=== PATIENT | female | born 1995 | race Two or more races ===

== ENCOUNTER 2024-06-11 02:40 | Inpatient (IN) | payer OTHER ==
[~2024-06-11] VITALS: Ht 160 cm; Wt 80.7 kg
[2024-06-11 01:59] VITALS: BP 115/72
[2024-06-11] MEDS ORDERED: RINGERS SOLUTION,LACTATED 1,000 ML IV SCH (02:45)
[2024-06-11] MEDS ORDERED: MAGNESIUM SULFATE IN WATER 4 GM/100 ML PIGGYBACK IV SCH (02:45)
[2024-06-11] MEDS ORDERED: BETAMETHASONE ACETATE,SOD PHOS 30 MG/5 ML ML IM SCH (02:45)
[2024-06-11] MEDS ORDERED: MAGNESIUM SULFATE IN WATER 500 ML IV SCH (02:45)
[2024-06-11] MEDS ORDERED: PRENATA CHEWAB1 EACH PO (03:37)
[2024-06-11] MEDS ORDERED: IRON236 MG PO (03:38)
[2024-06-11 03:52] LABS: HEMATOCRIT 32.6 % (36.0-45.00); HEMOGLOBIN 11.2 g/dL (12.0-15.00); MEAN CELL VOLUME 85.1 fL (80.00-100.00); MEAN CORPUSCULAR HEMOGLOBIN 29.1 pg (27.00-32.0); MEAN CORPUSCULAR HGB CONC 34.2 g/dl (32.0-36.0); PLATELET COUNT 370 K/uL (150-450); RED BLOOD COUNT 3.83 M/uL (4.00-6.00); RED CELL DISTRIBUTION WIDTH 13.4 % (11.5-14.5); URINE APPEARANCE Clear; URINE BILIRRUBIN Negative (NEGATIVE); URINE BLOOD Negative; URINE COLOR Yellow; URINE GLUCOSE Negative (NEGATIVE); URINE KETONE Negative (NEGATIVE); URINE LEUKOCYTE Negative; URINE NITRATE Negative; URINE PROTEIN Negative (NEGATIVE); URINE UROBILINOGEN 0.2 E.U./dl
[2024-06-11 04:01] LABS: URINE BACTERIA 276.5 uL (0.0-1933); URINE EPITHELIAL CELLS 19.1 uL (0.0-38.8); URINE WBC 6.6 uL (0.0-23.2)
[2024-06-11 04:23] LABS: INR < 0.93; PARTIAL THROMBOPLASTIN TIME 26.5 SECONDS (22.0-34.0)
[2024-06-11 04:25] LABS: ALBUMIN 2.9 gm/dL (3.4-5.0); BILIRUBIN TOTAL 0.19 mg/dL (0.3-1.2); CALCIUM 9.3 mg/dL (8.5-10.1); CREATININE SERUM 0.69 mg/dL (0.55-1.02); GFR 102.06; GLOBULINA 3.6 G/DL (2.4-3.5); POTASSIUM 4.57 mEq/L (3.5-5.1); TOTAL PROTEIN 6.5 gm/dL (6.4-8.2)
[2024-06-11 07:21] VITALS: BP 98/60
[2024-06-11 11:07] VITALS: BP 91/60
[2024-06-11 15:21] VITALS: BP 99/61
[2024-06-11 19:39] VITALS: BP 102/53
[2024-06-11 23:50] VITALS: BP 105/63
[2024-06-12] MEDS ORDERED: ACETAMINOPHEN 500 MG GEL..CAP PO ONE ×2 (03:08→04:00)
[2024-06-12 03:22] VITALS: BP 114/70
[2024-06-12] MEDS ORDERED: BETAMETHASONE ACETATE,SOD PHOS 30 MG/5 ML ML IM NR (03:35)
[2024-06-12 05:56] VITALS: BP 93/54; O2SAT 97
[2024-06-12] MEDS ORDERED: NIFEDIPINE 60 MG TAB.SA.OSM PO SCH (09:00)
[2024-06-12 11:00] VITALS: BP 111/68
[2024-06-12 16:01] VITALS: BP 106/64
[2024-06-13 00:51] VITALS: BP 100/60
[2024-06-13 05:50] VITALS: BP 100/55
[2024-06-13 08:47] VITALS: BP 114/67
== END 2024-06-13 08:50 | disposition home or self-care (01) | DRG 833 ==
LOC: OB/GYN 02:40 → LDR 02:40 → OB/GYN 06-12 08:55
PROVIDERS: Obstetrics & Gynecology; ADMIT Obstetrics & Gynecology Gynecology; ATTEND Obstetrics & Gynecology Gynecology
PROC: 4A1HXCZ Monitoring of Products of Conception, Cardiac Rate, External Approach (ICD-10-PCS; principal; 2024-06-11)
DX: O60.03 Preterm labor without delivery, third trimester (principal); Z3A.33 33 weeks gestation of pregnancy; Z20.822 Contact with and (suspected) exposure to COVID-19

== ENCOUNTER 2024-06-17 11:45 | Outpatient (CLI) | payer OTHER ==
[~2024-06-17 11:45] MED LIST: IRON236 MG PO; PRENATA CHEWAB1 EACH PO
== END 2024-06-17 12:47 | disposition home or self-care (01) ==
LOC: NST 11:45
PROVIDERS: ATTEND Obstetrics & Gynecology
DX: Z34.83 Encounter for supervision of other normal pregnancy, third trimester (principal)

== ENCOUNTER 2024-07-02 12:17 | Outpatient (CLI) | payer OTHER | END 2024-07-02 12:59 | disposition home or self-care (01) | LOC: NST 12:17 | PROVIDERS: ATTEND Obstetrics & Gynecology Maternal & Fetal Medicine | DX: Z3A.36 36 weeks gestation of pregnancy (principal) ==

== ENCOUNTER 2024-07-04 10:22 | Outpatient (CLI) | payer OTHER | END 2024-07-04 11:24 | disposition home or self-care (01) | LOC: NST 10:22 | PROVIDERS: ATTEND Obstetrics & Gynecology Maternal & Fetal Medicine | DX: Z34.83 Encounter for supervision of other normal pregnancy, third trimester (principal) ==

== ENCOUNTER 2024-07-08 10:12 | Outpatient (CLI) | payer OTHER | END 2024-07-08 11:09 | disposition home or self-care (01) | LOC: NST 10:12 | PROVIDERS: ATTEND Obstetrics & Gynecology Gynecology | DX: Z3A.37 37 weeks gestation of pregnancy (principal) ==

== ENCOUNTER 2024-07-08 14:29 | Inpatient (IN) | payer OTHER ==
[~2024-07-08] VITALS: Ht 160 cm; Wt 82.1 kg
[2024-07-15 13:51] VITALS: BP 132/76
[2024-07-15] MEDS ORDERED: RINGERS SOLUTION,LACTATED 1,000 ML IV SCH (15:00)
[2024-07-15] MEDS ORDERED: MISOPROSTOL 25 MCG TABLET VAG ONE (15:00)
[2024-07-15] MEDS ORDERED: MORPHINE SULFATE 4 MG/ML CARTRIDGE IV PRN (15:00)
[2024-07-15 15:32] LABS: HEMATOCRIT 34.1 % (36.0-45.00); HEMOGLOBIN 11.7 g/dL (12.0-15.00); MEAN CELL VOLUME 83.2 fL (80.00-100.00); MEAN CORPUSCULAR HEMOGLOBIN 28.5 pg (27.00-32.0); MEAN CORPUSCULAR HGB CONC 34.2 g/dl (32.0-36.0); PLATELET COUNT 322 K/uL (150-450); RED BLOOD COUNT 4.09 M/uL (4.00-6.00); RED CELL DISTRIBUTION WIDTH 13.8 % (11.5-14.5)
[2024-07-15 15:44] LABS: INR < 0.93; PARTIAL THROMBOPLASTIN TIME 27.9 SECONDS (22.0-34.0); PROTHROMBIN TIME 10.2 SECONDS (9.0-11.5)
[2024-07-15 15:52] LABS: ALBUMIN 3.1 gm/dL (3.4-5.0); BILIRUBIN TOTAL 0.2 mg/dL (0.3-1.2); CALCIUM 9.3 mg/dL (8.5-10.1); CREATININE SERUM 1.09 mg/dL (0.55-1.02); GFR 60.21; GLOBULINA 4.1 G/DL (2.4-3.5); POTASSIUM 4.48 mEq/L (3.5-5.1); TOTAL PROTEIN 7.2 gm/dL (6.4-8.2)
[2024-07-15 16:06] VITALS: BP 105/70
[2024-07-15 17:44] LABS: PH,URINE 6.5 (5.0-8.0); URINE APPEARANCE Clear; URINE BILIRRUBIN Negative (NEGATIVE); URINE BLOOD Negative; URINE COLOR Yellow; URINE GLUCOSE Negative (NEGATIVE); URINE KETONE Negative (NEGATIVE); URINE LEUKOCYTE Negative; URINE NITRATE Negative; URINE PROTEIN 30 (NEGATIVE); URINE UROBILINOGEN 0.2 E.U./dl
[2024-07-15 17:48] LABS: URINE BACTERIA 103.9 uL (0.0-1933); URINE EPITHELIAL CELLS 11.6 uL (0.0-38.8); URINE WBC 3.9 uL (0.0-23.2)
[2024-07-15 17:49] LABS: URINE CAST 0.14 uL (0.0-1.40); URINE RBC 1.3 uL (0.0-20.8)
[2024-07-15 19:12] VITALS: BP 127/80
[2024-07-15 23:39] VITALS: BP 130/73
[2024-07-16] VITALS (7 sets, daily range): BP systolic 107–140; BP diastolic 69–85
[2024-07-16] MEDS ORDERED: OXYTOCIN 500 ML IV ONE (08:00)
[2024-07-16] MEDS ORDERED: OXYTOCIN 20 UNITS/500ML RL PIGGYBAG IV ONE (08:02)
[2024-07-16] MEDS ORDERED: MORPHINE SULFATE 4 MG/ML CARTRIDGE IV STA (13:27)
[2024-07-16] MEDS ORDERED: OXYTOCIN 20 UNITS/1000ML RL PIGGYBAG IV ONE (14:45)
[2024-07-16] MEDS ORDERED: ERYTHROMYCIN BASE OPHT 1GM EACH TUBE OP ONE ×2 (14:45→18:15)
[2024-07-16] MEDS ORDERED: CHLORHEXIDINE GLUCONATE 120 ML BOTTLE TOP ONE (14:45)
[2024-07-16] MEDS ORDERED: LIDOCAINE HCL 1% 10ML VIAL ONE (14:46)
[2024-07-16] MEDS ORDERED: CHLORHEXIDINE GLUCONATE 120 ML BOTTLE TOP SCH (15:00)
[2024-07-16] MEDS ORDERED: IBUprofen 400 MG TABLET PO PRN (15:00)
[2024-07-16] MEDS ORDERED: OXYTOCIN 1,000 ML IV SCH (15:00)
[2024-07-16] MEDS ORDERED: LIDOCAINE HCL 1% 10ML VIAL IJ ONE (18:15)
[2024-07-17] VITALS: BP 130/80
[2024-07-17 07:06] LABS: HEMATOCRIT 28.3 % (36.0-45.00); HEMOGLOBIN 9.7 g/dL (12.0-15.00); MEAN CORPUSCULAR HEMOGLOBIN 28.5 pg (27.00-32.0); MEAN CORPUSCULAR HGB CONC 34.3 g/dl (32.0-36.0); PLATELET COUNT 238 K/uL (150-450); RED BLOOD COUNT 3.41 M/uL (4.00-6.00); RED CELL DISTRIBUTION WIDTH 13.5 % (11.5-14.5)
[2024-07-17 08:00] VITALS: BP 124/80
[2024-07-17] MEDS ORDERED: IRON FUM,PS/FOLIC/BCOMP,C NO.9 1 CAP CAPSULE PO SCH (09:00)
[2024-07-17 16:00] VITALS: BP 130/80
[2024-07-18 01:37] VITALS: BP 130/82
[2024-07-18 08:00] VITALS: BP 123/71
== END 2024-07-18 13:48 | disposition home or self-care (01) | DRG 807 ==
LOC: OB/GYN → LDR 07-15 13:26 → OB/GYN 07-16 18:15
PROVIDERS: Obstetrics & Gynecology; ADMIT Obstetrics & Gynecology Maternal & Fetal Medicine; ATTEND Obstetrics & Gynecology Maternal & Fetal Medicine
PROC: 4A1HXCZ Monitoring of Products of Conception, Cardiac Rate, External Approach (ICD-10-PCS; 2024-07-15)
PROC: 3E0P7VZ Introduction of Hormone into Female Reproductive, Via Natural or Artificial Opening (ICD-10-PCS; 2024-07-15)
PROC: 10E0XZZ Delivery of Products of Conception, External Approach (ICD-10-PCS; principal; 2024-07-16)
PROC: 0UQMXZZ Repair Vulva, External Approach (ICD-10-PCS; 2024-07-16)
PROC: 0UQG7ZZ Repair Vagina, Via Natural or Artificial Opening (ICD-10-PCS; 2024-07-16)
PROC: 3E033VJ Introduction of Other Hormone into Peripheral Vein, Percutaneous Approach (ICD-10-PCS; 2024-07-16)
DX: O70.0 First degree perineal laceration during delivery (principal); O36.5930 Maternal care for other known or suspected poor fetal growth, third trimester, not applicable or unspecified; Z37.0 Single live birth; Z3A.38 38 weeks gestation of pregnancy

== ENCOUNTER 2024-07-10 07:22 | Outpatient (CLI) | payer OTHER | END 2024-07-10 08:14 | disposition home or self-care (01) | LOC: NST 07:22 | PROVIDERS: ATTEND Obstetrics & Gynecology Gynecology | DX: Z3A.37 37 weeks gestation of pregnancy (principal) ==